=== PATIENT | female | born 1990 | race Caucasian/White ===

== ENCOUNTER 2017-02-06 11:14 | Inpatient (IN) | payer OTHER ==
[~2017-02-06] VITALS: Wt 72.0 kg
[~2017-02-06 11:14] MED LIST: PREN-39 PO
--- NOTE | 2017-02-06 11:30 | ERA ---
ER Documentation Chief Complaint Date/Time DATE: 02/06/17 TIME: 11:19 Chief Complaint HPI 27 yo F who presents to ED as a code Green from the [facility] where she delivered a . The patient has a term , her JIG GRINDER SET UP OPERATOR is Dr. Varghese. The patient arrives with a baby girl on her lap who is crying and vigorous with a umbilical cord intact. The patient is describing vaginal pain that is moderate and throbbing. She describes care. Further history is limited given critical presentation in nature. ROS All systems reviewed and are negative except as per history of present illness. Medications Home Meds Reported Medications Vits W-Ca,Fe,Fa(<1MG) ( Vitamins) 1 Tab Tablet, 1 TAB PO DAILY 01/06/13 Allergies Allergies: Coded Allergies: No Known Drug Allergies (Verified Allergy, Unknown, 01/06/13) PMhx/Soc Hx Miscellaneous Medical Probl: No (NO MEDICAL OR SURGICAL HISTORY) Hx Alcohol Use: No Hx Substance Use: No Hx Tobacco Use: No FmHx Family History: No diabetes Physical Exam Physical Exam General: Mother is well-appearing, holding child in her lap Head: Normocephalic, atraumatic Eyes: Pupils equally reactive, EOM intact ENT: Moist mucous membranes Neck: Supple, no lymphadenopathy Respiratory: Nonlabored Cardiovascular: Good capillary refill Abdominal: Soft, non-tender, non-distended, no peritoneal signs : Umbilical cord protruding from vagina, minimal bleeding noted on external examination MSK: No edema, no unilateral swelling, 5/5 strength Neurologic: Alert and oriented, moving all extremities, normal speech Skin: No rash Psych: Normal mood Procedures/MDM The mother has delivered what appears to be a term infant with normal spontaneous vaginal delivery. The child is well-appearing, crying, please see child examination per their documentation. The mother is well-appearing at this time. The umbilical cord is still attached. A code was called and the intensive care unit as well as JIG GRINDER SET UP OPERATOR team was immediately available in the emergency room. The child was placed on the mother's bare skin. The patient was then rapidly taken to labor and delivery with JIG GRINDER SET UP OPERATOR as well as intensive care unit. Further assessment and management per these teams. Patient was stabilized in the emergency room. The cord was not cut or clamped per direction by the JIG GRINDER SET UP OPERATOR team. The patient was rapidly taken to labor and delivery therefore vital signs and further assessment were unable to be obtained. Departure Diagnosis: Primary Impression: (normal spontaneous vaginal delivery) Condition: Stable KALEN FOX MD Feb 06, 2017 11:30
[2017-02-06] MEDS ORDERED: LIDOCAINE 1% (MPF) 30 ML INJ ONE (12:04)
[2017-02-06] MEDS ORDERED: BUTORPHANOL 2 MG INJ ONE (12:05)
[2017-02-06] MEDS ORDERED: LACTATED RINGER'S 1,000 ML IV SCH (12:10)
[2017-02-06] MEDS ORDERED: OXYTOCIN 30 UNITS/LR 500 ML IV PRN ×2 (12:30→16:30)
[2017-02-06] MEDS ORDERED: MISOPROSTOL 200 MCG TAB PR PRN ×2 (12:30→16:30)
[2017-02-06] MEDS ORDERED: CARBOPROST 250 MCG INJ IM PRN ×2 (12:30→16:30)
[2017-02-06] MEDS ORDERED: LIDOCAINE 1% (MPF) 30 ML INJ INJ PRN (12:30)
[2017-02-06] MEDS ORDERED: METHYLERGONOVINE 0.2 MG INJ IM PRN ×2 (12:30→16:30)
[2017-02-06] MEDS ORDERED: IBUPROFEN 600 MG TAB PO PRN (12:30)
[2017-02-06] MEDS ORDERED: BUTORPHANOL 2 MG INJ IV PRN (12:30)
[2017-02-06] MEDS ORDERED: LACTATED RINGER'S 1,000 ML IV PRN (12:30)
[2017-02-06] MEDS ORDERED: OXYTOCIN 30 UNITS/LR 500 ML IV SCH ×2 (12:30)
[2017-02-06] MEDS ORDERED: CEFAZOLIN 2 GM/50 ML (PMX) 50 ML IVPB ONE (13:00)
--- NOTE | 2017-02-06 13:11 | HP ---
Date/Time of Note Date/Time of Note DATE: 02/06/17 TIME: 12:57 OB - History Hx of Present Free Text/Dictation 27y.o at 40w4d was brought from ER after given near [facility] attended by her her with placenta in utero patient was shecduled for induction this afternoon. sShe had unevenful course except UDS revealed marijana. admitted for further care. Chief Complaint: abdominal pain with vaginal bleeding after given near ER Estimated Due Date: Feb 02, 2017 : 3 Para: 2 Spontaneous : 0 Therapeutic : 0 Care: Good Care Ultrasounds: Normal mid trimester US Obstetrical Complications: None Medical Complications: None Past Family/Social History * Past Medical, Surgical, Family and Obstetric Histories reviewed from chart. Blood Type: O+ Rubella: immune RPR/VDRL: Negative GBS Status: Negative HBsAG: Negative OB Admission Exam Vital Signs Vital Signs Vital Signs Date Time Temp Pulse Resp B/P Pulse Ox O2 Delivery O2 Flow Rate FiO2 02/06/17 11:29 98.0 81 22 105/81 98 Physical Exam HEENT: WNL Heart: Rhythm Normal Lungs: Clear, Equal Abdomen: WNL Extremities: Normal Reflexes: Normal Cervical Dilatation: other Effacement: Other Station: Other (ps/p vaginal delivery,with placenta in utero with cord clamp on ) OB Assessment/Plan Other Assessment: s/p vaginal delivery with placenta in utero perineal laceration 2nd degree Other plan: delivery of placenta repair of perineal laceration MARGARITA WHITEHEAD MD Feb 06, 2017 13:07
--- NOTE | 2017-02-06 13:19 | LDN ---
Date/Time of Note Date/Time of Note DATE: 02/06/17 TIME: 13:13 Delivery Summary s/p vaginal delivery placenta in utero Weeks of Gestation 40w4d Placenta Delivered: Spontaneously Meconium: none Episiotomy: No Perineal laceration: 2 Laceration repair: 00ch gut Anesthesia type: Local Estimated blood loss: 100 Sponge & Needle done & correct: Yes All needle counts correct: Yes Any foreign bodies felt in the: No Problems: Delivery Information Sex Infant Sex: female Umbilical Cord Umbilical cord with: 3 Vessels Mother & Baby Disposition Disposition was female was brought fom ER after evaluation with cord detatched from mom with placenta in utero color baby was pink cry well in father's arm nila 40min after was given Mom & Baby to Maternity; Good: Yes Mom transferred to: Other () Baby to NICU: No MARGARITA WHITEHEAD MD Feb 06, 2017 13:19
[2017-02-06 13:31] LABS: BASOPHILS % 0.2 % (0.0-2.0); EOSINOPHILS % 0.1 % (0.0-7.0); HEMATOCRIT 32.4 % (37.0-47.0); HEMOGLOBIN 10.3 g/dl (12.0-16.0); LYMPHOCYTES # 1.6 10^3/ul (0.8-2.9); LYMPHOCYTES % 7.8 % (15.0-51.0); MEAN CORPUSCULAR HEMOGLOBIN 26.3 pg (29.0-33.0); MEAN CORPUSCULAR HGB CONC 31.8 g/dl (32.0-37.0); MEAN CORPUSCULAR VOLUME 82.7 fl (82.0-101.0); MEAN PLATELET VOLUME 12.4 fl (7.4-10.4); MONOCYTE # 0.7 10^3/ul (0.3-0.9); MONOCYTES % 3.2 % (0.0-11.0); NEUTROPHILS % 87.8 % (39.0-77.0); PLATELET COUNT 146 10^3/UL (140-415); RED BLOOD COUNT 3.92 10^6/ul (4.20-5.40); RED CELL DISTRIBUTION WIDTH 15.9 % (11.5-14.5); WHITE BLOOD COUNT 20.7 10^3/ul (4.8-10.8)
[2017-02-06 13:46] LABS: INR 0.91; PROTIME 12.2 Sec (12.2-14.2)
[2017-02-06 13:47] LABS: PARTIAL THROMBOPLASTIN TIME 25.7 Sec (25.0-35.0)
[2017-02-06] MEDS ORDERED: CEFAZOLIN 2 GM/50 ML (PMX) 50 ML IVPB SCH (14:00)
[2017-02-06 15:31] LABS: BARBITURATES Negative (NEGATIVE); BENZODIAZEPINES Negative (NEGATIVE)
[2017-02-06 15:32] LABS: COCAINE Negative (NEGATIVE); OPIATES Negative (NEGATIVE)
[2017-02-06 15:33] LABS: CANNABINOIDS Positive (NEGATIVE)
[2017-02-06 15:40] VITALS: BP 110/67; RESP 19
[2017-02-06] MEDS ORDERED: LANOLIN 7 GM TUBE TOP PRN (16:30)
[2017-02-06] MEDS ORDERED: WITCH HAZEL/GLYCERIN PAD PR PRN (16:30)
[2017-02-06] MEDS ORDERED: ZOLPIDEM 5 MG TAB PO PRN (16:30)
[2017-02-06] MEDS ORDERED: BENZOCAINE 20% 56 ML SPRAY TOP PRN (16:30)
[2017-02-06] MEDS ORDERED: OXYCODONE/ASPIRIN (4.88/325) TAB PO PRN ×2 (16:30)
[2017-02-06] MEDS: OXYTOCIN 30 UNITS/LR 500 ML IV SCH ×2 (16:42→21:06)
[2017-02-06] MEDS: IBUPROFEN 600 MG TAB PO SCH ×2 (17:31→23:47)
[2017-02-06 19:40] VITALS: BP 117/60; PULSE 82; RESP 19
[2017-02-06] MEDS: CEFAZOLIN 2 GM/50 ML (PMX) 50 ML IVPB SCH (21:05)
[2017-02-06] MEDS: SENNA/DOCUSATE NA (8.6MG/50MG) TAB PO SCH (21:06)
[2017-02-06 23:50] VITALS: BP 112/62; PULSE 76; RESP 17
[2017-02-07 03:50] VITALS: BP 98/59; PULSE 69; RESP 17
[2017-02-07] MEDS ORDERED: LACTATED RINGER'S 1,000 ML IV SCH (04:00)
[2017-02-07] MEDS: CEFAZOLIN 2 GM/50 ML (PMX) 50 ML IVPB SCH ×3 (05:37→21:59)
[2017-02-07] MEDS: IBUPROFEN 600 MG TAB PO SCH ×4 (05:39→23:51)
[2017-02-07 08:00] VITALS: BP 93/55; PULSE 78; RESP 18
--- NOTE | 2017-02-07 08:13 | PN ---
Date/Time of Note Date/Time of Note DATE: 02/07/17 TIME: 08:10 OB Subjective Subjective Subjective doing fine no c/o OB Objective Objective Objective vss afebrile fundus firm lochia min calf neg for tenderness OB Assessment/Plan Other Assessment: stable post vaginal delivery#1 Other plan: discharge hoome in am MARGARITA WHITEHEAD MD Feb 07, 2017 08:13
[2017-02-07] MEDS: SENNA/DOCUSATE NA (8.6MG/50MG) TAB PO SCH ×2 (10:05→21:59)
[2017-02-07 10:31] LABS: BASOPHILS % 0.2 % (0.0-2.0); EOSINOPHILS # 0.2 10^3/ul (0.0-0.5); EOSINOPHILS % 0.9 % (0.0-7.0); HEMOGLOBIN 10.1 g/dl (12.0-16.0); LYMPHOCYTES # 2.6 10^3/ul (0.8-2.9); LYMPHOCYTES % 13.9 % (15.0-51.0); MEAN CORPUSCULAR HEMOGLOBIN 25.8 pg (29.0-33.0); MEAN CORPUSCULAR HGB CONC 30.6 g/dl (32.0-37.0); MEAN CORPUSCULAR VOLUME 84.4 fl (82.0-101.0); MEAN PLATELET VOLUME 12.6 fl (7.4-10.4); MONOCYTE # 0.6 10^3/ul (0.3-0.9); MONOCYTES % 3.1 % (0.0-11.0); NEUTROPHILS % 81.1 % (39.0-77.0); PLATELET COUNT 155 10^3/UL (140-415); RED BLOOD COUNT 3.91 10^6/ul (4.20-5.40); RED CELL DISTRIBUTION WIDTH 16.2 % (11.5-14.5); WHITE BLOOD COUNT 18.6 10^3/ul (4.8-10.8)
[2017-02-07 15:15] VITALS: BP 101/55; PULSE 84
[2017-02-07 20:00] VITALS: BP 104/67; PULSE 85; RESP 20
[2017-02-08 04:31] VITALS: BP 105/58; PULSE 71; RESP 20
[2017-02-08] MEDS: CEFAZOLIN 2 GM/50 ML (PMX) 50 ML IVPB SCH ×2 (05:36→13:59)
[2017-02-08] MEDS: IBUPROFEN 600 MG TAB PO SCH ×2 (05:36→11:31)
[2017-02-08 07:40] VITALS: BP 110/68; PULSE 80; RESP 19
[2017-02-08] MEDS ORDERED: DIPHTH/TET/ACEL PERTUSS (ADULT) 0.5 ML VIAL IM* ONE (09:00)
[2017-02-08] MEDS: SENNA/DOCUSATE NA (8.6MG/50MG) TAB PO SCH (09:51)
--- NOTE | 2017-02-08 14:23 | PD.PPDC ---
CAGE SHIFT MANAGER Discharge Instruction Diagnosis Final Diagnosis: s/p vagina delivery Condition Patient Condition: Stable Diet Diet: Resume Regular Diet Activity/Restrictions Activity: May Shower Restrictions: No Exercising No Lifting No Sexual Activity Nothing in the Vagina No [place] No Tampons, douche Follow-up Follow-up with Physician: 6, Week/Weeks Return to clinic for BAKERY WORKER Instructions: Fever greater than 101 Chills Worsening abdominal pain Excessive Vaginal Bleeding More than 2 pads per hour Unable to tolerate diet OB Instructions: Breast Tenderness Depression Blurried Vision MARGARITA WHITEHEAD MD Feb 08, 2017 14:23
--- NOTE | 2017-02-08 14:26 | DS ---
Date/Time of Note Date/Time of Note DATE: 02/08/17 TIME: 14:25 Obstetrical Discharge Record Final Diagnosis Final Diagnosis: Term delivered Vaginal Delivery Obstetrical Delivery: Spontaneous, Laceration, Repaired Complications Augmentation: No Induction: No Rupture of Membranes: No Condition on Discharge Physical Assessment Last Vitals: vss afebile Voiding: Yes Bowel Movement: Yes Breast: Soft, non-tender Fundus: Firm Calf Tenderness: No Patient Condition: Stable MARGARITA WHITEHEAD MD Feb 08, 2017 14:26
[2017-02-08 16:04] VITALS: BP 110/65; PULSE 75; RESP 19
== END 2017-02-08 17:40 | disposition home or self-care (01) | DRG 775 ==
LOC: E/R 11:14 → L-D 11:52 → PP1 15:24
PROVIDERS: ADMIT Obstetrics & Gynecology; ATTEND Obstetrics & Gynecology
PROC: 10E0XZZ Delivery of Products of Conception, External Approach (ICD-10-PCS; principal; 2017-02-06)
PROC: 0KQM0ZZ Repair Perineum Muscle, Open Approach (ICD-10-PCS; 2017-02-06)
PROC: 3E033VJ Introduction of Other Hormone into Peripheral Vein, Percutaneous Approach (ICD-10-PCS; 2017-02-06)
DX: O48.0 Post-term pregnancy (principal); O70.1 Second degree perineal laceration during delivery; Z3A.40 40 weeks gestation of pregnancy; Z37.0 Single live birth
CPT/HCPCS: 59414; 80307; 85025; 85610; 85730; 86592; 86900; 86901; 87340; 90715; 96374; J0595; J0690; J2590; J7120